=== PATIENT | male | born 2000 | race Caucasian/White ===

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

== ENCOUNTER 2022-02-08 08:59 | Emergency (ER) | payer BC, SELFPAY ==
[2022-02-08 10:00] VITALS: BP 102/62; PULSE 87; RESP 20; TEMP 36.5; O2SAT 100; BMI 21.7
--- NOTE | 2022-02-08 10:13 | HMH.EDUTC ---
[facility] [place] Impression: Impetigo Contact dermatitis Qualifiers: Contact dermatitis type: irritant Contact dermatitis trigger: non-food plants Qualified Code(s): L24.7 - Irritant contact dermatitis due to plants, except food Disposition: Home, Self-Care Condition on Discharge: Good Instructions: DI for Contact Dermatitis Additional Instructions: Keep clean and dry. Return to [facility] or PCP if not improving. Prescriptions: Sulfamethoxazole/Trimethoprim [Bactrim DS tablet] 1 each PO BID 10 Days #20 tab Transmission Status: Pending to [facility] methylPREDNISolone [Medrol 4mg tab] 4 mg PO DIRECTED #21 tab Transmission Status: Pending to [facility] Mupirocin Calcium [Mupirocin 2% Cream 15gm] 1 applicatio TP TID 10 Days #15 g Transmission Status: Pending to [facility] Triamcinolone Acetonide 30 gm TP TID 10 Days #15 gm Transmission Status: Pending to [facility] Referrals: Korin Bang MD [Primary Care Provider] - Time of Disposition: 10:22 Medical Decision Making - Cory Inquiry Pt receiving controlled substance: No Vital Signs: 02/08/22 10:00 Temperature 97.7 F Temperature Source Oral Pulse Rate [Left Brachial] 87 Respiratory Rate 20 Blood Pressure [Left Arm] 102/62 L Blood Pressure Mean [Left Arm] 75 Blood Pressure Source [Left Arm] Automatic Cuff Blood Pressure Position [Left Arm] Sitting 02 Sat by Pulse Oximetry 100 Oxygen Delivery Method Room Air [facility] [place] - General Stated complaint: rash on right leg Time Seen by Provider: 02/08/22 10:17 Mode of Arrival: Ambulatory Source of Information: Patient Limitations: No Limitations Description of Symptoms (Recalled from Triage Doc. by RN): PATIENT C/O RASH TO TOP OF RIGHT THIGH SINCE LAST THURSDAY HEENT Symptoms (Recalled from RN notes): No Resp Symptoms (Recalled from RN notes): No Skin Symptoms (Recalled from RN notes): Yes MS Symptoms (Recalled from RN notes): No Functional Status (Recalled from RN notes): WNL - History of Present Illness Provider Complaint: Rash on top of right thigh X 1 week. 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 Getting progressively worse. It is itchy, but does not hurt Onset (ago): week(s) (1) Location: right, lower extremity Radiation: non-radiation Severity: moderate Quality: other (itching) Consistency: constant Relieving factors: none Exacerbating factors: none Associated symptoms: denies other symptoms Treatments prior to arrival: none - Related Data Previous Rx's Medication Instructions Recorded amoxicillin 875 mg-potassium 1 tab PO BID 10 Days #20 tab 08/28/20 clavulanate 125 mg tablet ondansetron 8 mg disintegrating 8 mg PO Q8H PRN 5 Days #30 tab 08/28/20 tablet albuterol sulfate 90 mcg/actuation 2 puff INHALATION Q4-6H PRN 30 08/30/20 aerosol inhaler Days #6.7 g Ondansetron [Zofran 4mg ODT] 4 mg PO TIDP PRN #6 tab 07/14/21 Mupirocin Calcium [Mupirocin 2% 1 applicatio TP TID 10 Days #15 g 02/08/22 Cream 15gm] Sulfamethoxazole/Trimethoprim 1 each PO BID 10 Days #20 tab 02/08/22 [Bactrim DS tablet] Triamcinolone Acetonide 30 gm TP TID 10 Days #15 gm 02/08/22 methylPREDNISolone [Medrol 4mg 4 mg PO DIRECTED #21 tab 02/08/22 tab] Allergies Allergy/AdvReac Type Severity Reaction Status Date / Time No Known Allergies Allergy Verified 08/28/20 10:52 - Worker's Comp Is this a Worker's Comp case?: No [facility] History - Hepatitis A Screen Attestation statement:: This patient has been screened for Hepatitis A risk factors. I have reviewed the patient's past medical history: Yes Medical History: Denies:: Cancer, Diabetes Mellitus Type 1, Diabetes Mellitus Type 2, MRSA Other Surgeries: Yes: No Previous Surgery Amputation: No - Social History Alcohol Intake: never Substance Use Type: denies use Occupational Status: other ROS Obtained: Yes All systems reviewed & no additional complaints - Integumentary/Breasts Ski
[2022-02-08 10:26] VITALS: BP 102/62; PULSE 87; RESP 20; TEMP 36.5; O2SAT 100
== END 2022-02-08 10:37 | disposition home or self-care (01) ==
PROVIDERS: Emergency Provider Physician Assistant; PCP Family Medicine
DX: L01.00 Impetigo, unspecified (principal); L24.7 Irritant contact dermatitis due to plants, except food; R21 Rash and other nonspecific skin eruption
CPT/HCPCS: 96372; 99212; G0463; J1040

== ENCOUNTER 2024-03-29 14:06 | Outpatient (CLI) | payer BC, SELFPAY ==
[2024-03-29 14:22] LABS: Basophils # 0.1 K/mm3 (0-0.2); Basophils % 0.9 % (0.1-2.0); Eosinophils # 0.2 K/mm3 (0.0-0.4); Eosinophils % 2.4 % (0.1-12.0); Hematocrit 43.5 % (42.0-52.0); Hemoglobin 14.6 g/dL (14.1-18.0); Lymphocytes # 2.1 K/mm3 (0.7-4.5); Mean Corpuscular HGB Conc 33.5 g/dL (31.8-35.4); Mean Corpuscular Hemoglobin 31.3 pg (27.0-31.2); Mean Corpuscular Volume 93.3 fl (80-94); Mean Platelet Volume 8.6 fl (7.4-10.4); Monocytes # 0.5 K/mm3 (0.1-1.0); Monocytes % 6.2 % (1.7-9.3); Neutrophils # 5.3 K/mm3 (1.8-7.8); Neutrophils % 64.6 % (37.0-80.0); Platelet Count 243 K/mm3 (142-424); Red Blood Count 4.66 M/mm3 (4.60-6.20); Red Cell Distribution Width 13.4 % (11.5-17.5); White Blood Count 8.2 K/mm3 (4.8-10.8)
[2024-03-31 10:33] LABS: Hemoglobin (Hgb) Solubility Negative (Negative)
[2024-03-31 14:11] LABS: Peripheral Smear Review Scanned Result
== END 2024-03-29 23:59 | disposition home or self-care (01) ==
LOC: LAB 14:07
PROVIDERS: PCP Family Medicine; Visit Provider Student in an Organized Health Care Education/Training Program
DX: Z13.0 Encounter for screening for diseases of the blood and blood-forming organs and certain disorders involving the immune mechanism (principal)
CPT/HCPCS: 36415; 85025; 85660